=== PATIENT | female | born 1985 | race Caucasian/White ===

== ENCOUNTER 2018-08-17 02:43 | Inpatient (IN) | payer OTHER ==
[2018-08-17] MEDS ORDERED: MISOPROSTOL 200 MCG TAB PR ×2 (03:30→13:00)
[2018-08-17] MEDS ORDERED: METHYLERGONOVINE 0.2 MG INJ IM ×2 (03:30→13:00)
[2018-08-17] MEDS ORDERED: CARBOPROST 250 MCG INJ IM ×2 (03:30→13:00)
[2018-08-17] MEDS ORDERED: IBUPROFEN 600 MG TAB PO (03:30)
[2018-08-17] MEDS ORDERED: OXYTOCIN 30 UNITS/LR 500 ML IV ×2 (03:30→13:00)
[2018-08-17] MEDS ORDERED: BUTORPHANOL 2 MG INJ IV (03:30)
[2018-08-17] MEDS: LACTATED RINGER'S 1,000 ML IV* ×3 (04:00→20:53)
[2018-08-17] MEDS: AMPICILLIN 2 GM/NS (PMX) 100 ML IV (04:01)
[2018-08-17 04:03] LABS: ADD MAN DIFF? NO
[2018-08-17 04:13] LABS: BASOPHILS % 0.4 % (0.0-2.0); EOSINOPHILS # 0.2 10^3/ul (0.0-0.5); EOSINOPHILS % 1.6 % (0.0-7.0); HEMATOCRIT 39.9 % (37.0-47.0); HEMOGLOBIN 13.3 g/dl (12.0-16.0); LYMPHOCYTES # 2.7 10^3/ul (0.8-2.9); LYMPHOCYTES % 24.7 % (15.0-51.0); MEAN CORPUSCULAR HEMOGLOBIN 29.8 pg (29.0-33.0); MEAN CORPUSCULAR HGB CONC 33.3 g/dl (32.0-37.0); MEAN CORPUSCULAR VOLUME 89.5 fl (82.0-101.0); MONOCYTES % 9.1 % (0.0-11.0); NEUTROPHILS % 63.7 % (39.0-77.0); PLATELET COUNT 363 10^3/UL (140-415); RED BLOOD COUNT 4.46 10^6/ul (4.20-5.40); RED CELL DISTRIBUTION WIDTH 13.2 % (11.5-14.5)
[2018-08-17 04:13] LABS: WHITE BLOOD COUNT 10.9 10^3/ul (4.8-10.8)
[2018-08-17 04:27] LABS: INR 0.87; PROTIME 11.9 Sec (11.9-14.9); PT RATIO 0.9
[2018-08-17 04:28] LABS: PARTIAL THROMBOPLASTIN TIME 26.1 Sec (23.0-35.0)
[2018-08-17 04:33] LABS: ALANINE AMINOTRANSFERASE 21 IU/L (13-69); ALBUMIN 3.1 g/dl (3.3-4.9); ALBUMIN/GLOBULIN RATIO 0.88; ALKALINE PHOSPHATASE 305 IU/L (42-121); ANION GAP 9 (5-13); ASPARTATE AMINO TRANSFERASE 18 IU/L (15-46); BILIRUBIN,INDIRECT 0.6 mg/dl (0-1.1); BILIRUBIN,TOTAL 0.6 mg/dl (0.2-1.3); BLOOD UREA NITROGEN 10 mg/dl (7-20); CALCIUM 9.9 mg/dl (8.4-10.2); CARBON DIOXIDE 20 mmol/L (21-31); CHLORIDE 108 mmol/L (97-110); CREATININE 0.59 mg/dl (0.44-1.00); GLUCOSE 103 mg/dl (70-220); SODIUM 137 mmol/L (135-144); TOTAL PROTEIN 6.6 g/dl (6.1-8.1)
[2018-08-17 05:04] LABS: HEPATITIS B SURFACE ANTIGEN NEGATIVE (NEGATIVE)
[2018-08-17 05:31] LABS: ADD UMIC YES; UR ASCORBIC ACID 40 mg/dL (NEGATIVE); UR BACTERIA FEW /HPF (NONE SEEN); UR BILIRUBIN (Dip) NEGATIVE (NEGATIVE); UR BLOOD (Dip) 2+ mg/dL (NEGATIVE); UR CALCIUM OXALATE CRYSTAL MANY /HPF (NONE SEEN); UR CLARITY CLOUDY (CLEAR); UR COLOR YELLOW (YELLOW); UR GLUCOSE (Dip) NEGATIVE (NEGATIVE); UR KETONES (Dip) NEGATIVE (NEGATIVE); UR LEUKOCYTE ESTERASE (Dip) 1+ Leu/ul (NEGATIVE); UR MUCUS FEW /HPF (NONE SEEN); UR NITRITE (Dip) NEGATIVE (NEGATIVE); UR RBC 6 /HPF (0-5); UR SPECIFIC GRAVITY (Dip) 1.026 (1.003-1.030); UR SQUAMOUS EPITHELIAL CELL FEW /HPF (FEW); UR TOTAL PROTEIN (Dip) 1+ mg/dl (NEGATIVE); UR UROBILINOGEN (Dip) 1+ mg/dL (NEGATIVE); UR WBC 27 /HPF (0-5)
[2018-08-17] MEDS ORDERED: FENTAnyl 2MCG/ML-ROPIV 0.2% 100 ML (05:57)
[2018-08-17] MEDS ORDERED: NALOXONE (0.4 MG/ML) INJ IV (06:30)
[2018-08-17] MEDS: LACTATED RINGER'S 1,000 ML IV (06:33)
[2018-08-17] MEDS: FENTAnyl 2MCG/ML-ROPIV 0.2% 100 ML BAG EPI (06:35)
[2018-08-17] MEDS: AMPICILLIN 1 GM/NS (PMX) 50 ML IV (08:04)
[2018-08-17] MEDS: OXYTOCIN 30 UNITS/LR 500 ML IV ×2 (10:25→11:10)
[2018-08-17] MEDS: LIDOCAINE 0.5% (SDV) 50 ML INJ INFIL (10:25)
[2018-08-17] MEDS ORDERED: CEFAZOLIN 2 GM/50 ML (PMX) 50 ML IVPB (10:31)
[2018-08-17] MEDS: CEFAZOLIN 2 GM/50 ML (PMX) 50 ML IVPB (10:45)
[2018-08-17] MEDS ORDERED: ACETAMINOPHEN 325 MG TAB PO (13:00)
[2018-08-17] MEDS: LANOLIN 7 GM TUBE TOP (16:03)
[2018-08-17] MEDS: WITCH HAZEL/GLYCERIN PAD PR (16:04)
[2018-08-17] MEDS: BENZOCAINE 20% 56 ML SPRAY TOP (16:04)
[2018-08-17] MEDS: DIBUCAINE 1% 30 GM OINT PR (16:04)
[2018-08-17] MEDS: HYDROCODONE/APAP (5/325) TAB PO (16:05)
[2018-08-17] MEDS: IBUPROFEN 600 MG TAB PO ×2 (18:36→23:47)
[2018-08-17] MEDS: MINERAL OIL LIGHT 10 ML VIAL TOP (19:00)
[2018-08-17 19:28] LABS: RAPID PLASMA REAGIN NONREACTIVE (NR)
[2018-08-17] MEDS: SENNA/DOCUSATE NA (8.6MG/50MG) TAB PO (21:28)
[2018-08-18] MEDS: IBUPROFEN 600 MG TAB PO ×3 (05:53→17:25)
[2018-08-18 07:59] LABS: ADD MAN DIFF? NO
[2018-08-18 08:03] LABS: WHITE BLOOD COUNT 11.9 10^3/ul (4.8-10.8)
[2018-08-18 08:03] LABS: BASOPHILS % 0.3 % (0.0-2.0); EOSINOPHILS # 0.2 10^3/ul (0.0-0.5); EOSINOPHILS % 1.3 % (0.0-7.0); HEMATOCRIT 32.7 % (37.0-47.0); HEMOGLOBIN 10.9 g/dl (12.0-16.0); LYMPHOCYTES # 2.5 10^3/ul (0.8-2.9); LYMPHOCYTES % 20.9 % (15.0-51.0); MEAN CORPUSCULAR HEMOGLOBIN 30.4 pg (29.0-33.0); MEAN CORPUSCULAR HGB CONC 33.3 g/dl (32.0-37.0); MEAN CORPUSCULAR VOLUME 91.3 fl (82.0-101.0); MEAN PLATELET VOLUME 11.1 fl (7.4-10.4); MONOCYTE # 0.8 10^3/ul (0.3-0.9); MONOCYTES % 6.9 % (0.0-11.0); NEUTROPHIL # 8.3 10^3/ul (1.6-7.5); NEUTROPHILS % 70.2 % (39.0-77.0); PLATELET COUNT 307 10^3/UL (140-415); RED BLOOD COUNT 3.58 10^6/ul (4.20-5.40); RED CELL DISTRIBUTION WIDTH 13.6 % (11.5-14.5)
[2018-08-18] MEDS: SENNA/DOCUSATE NA (8.6MG/50MG) TAB PO ×2 (10:15→21:27)
[2018-08-19] MEDS: IBUPROFEN 600 MG TAB PO ×3 (00:02→11:50)
[2018-08-19] MEDS: SENNA/DOCUSATE NA (8.6MG/50MG) TAB PO (10:20)
[2018-08-19] MEDS: DIPHTH/TET/ACEL PERTUSS (ADULT) 0.5 ML VIAL IM* (10:21)
== END 2018-08-19 15:40 | disposition home or self-care (01) | DRG 768 ==
LOC: OBT 02:43 → L-D 02:43 → OBT 03:15 → L-D 03:15 → PP1 12:48
PROVIDERS: Obstetrics & Gynecology
PROC: 10E0XZZ Delivery of Products of Conception, External Approach (ICD-10-PCS; principal; 2018-08-17)
PROC: 0DQR0ZZ Repair Anal Sphincter, Open Approach (ICD-10-PCS; 2018-08-17)
DX: O77.0 Labor and delivery complicated by meconium in amniotic fluid (principal); O70.20 Third degree perineal laceration during delivery, unspecified; O99.824 Streptococcus B carrier state complicating childbirth; Z37.0 Single live birth; Z3A.39 39 weeks gestation of pregnancy; Z23 Encounter for immunization
CPT/HCPCS: 36415; 62319; 80053; 81001; 84560; 85025; 85610; 85730; 86592; 86850; 86900; 86901; 87340; 90686; 90715; 99464

== ENCOUNTER 2019-07-17 16:57 | Inpatient (IN) | payer OTHER ==
[2019-07-17] MEDS ORDERED: LACTATED RINGER'S 1,000 ML IV (21:16)
[2019-07-17] MEDS ORDERED: OXYTOCIN 30 UNITS/LR 500 ML IV ×2 (21:30)
[2019-07-17] MEDS ORDERED: METHYLERGONOVINE 0.2 MG INJ IM (21:30)
[2019-07-17] MEDS ORDERED: LIDOCAINE 1% (MPF) 30 ML INJ INJ (21:30)
[2019-07-17] MEDS ORDERED: CARBOPROST 250 MCG INJ IM (21:30)
[2019-07-17] MEDS ORDERED: BUTORPHANOL 2 MG INJ IV (21:30)
[2019-07-17] MEDS ORDERED: MISOPROSTOL 200 MCG TAB PR (21:30)
[2019-07-17] MEDS ORDERED: IBUPROFEN 600 MG TAB PO (21:30)
[2019-07-17] MEDS: LACTATED RINGER'S 1,000 ML IV (22:12)
[2019-07-18] MEDS: DEXTROSE 5%-LR 1,000 ML IV ×2 (06:17→17:30)
[2019-07-18] MEDS ORDERED: FENTAnyl 2MCG/ML-ROPIV 0.2% 100 ML (07:42)
[2019-07-18] MEDS: OXYTOCIN 30 UNITS/LR 500 ML IV ×2 (09:41→19:21)
[2019-07-18] MEDS ORDERED: NALOXONE (0.4 MG/ML) INJ IV (15:00)
[2019-07-18] MEDS ORDERED: FENTAnyl 2MCG/ML-ROPIV 0.2% 100 ML BAG EPI (15:00)
[2019-07-18] MEDS ORDERED: KETOROLAC 30 MG INJ IV (15:00)
[2019-07-18] MEDS ORDERED: ONDANSETRON 4 MG INJ IV (15:00)
[2019-07-18] MEDS ORDERED: DIPHENHYDRAMINE 50 MG INJ IV (15:00)
[2019-07-18] MEDS ORDERED: HYDROmorphONE 0.5 MG/0.5 ML SYG IV ×2 (15:00)
[2019-07-18] MEDS: LABETALOL HCL 20MG INJ IV (17:26)
[2019-07-18] MEDS ORDERED: OXYTOCIN 10 UNIT INJ (18:06)
[2019-07-18] MEDS: MINERAL OIL LIGHT 10 ML VIAL TOP (21:50)
[2019-07-18] MEDS ORDERED: DIBUCAINE 1% 30 GM OINT TOP (22:30)
[2019-07-18] MEDS ORDERED: MISOPROSTOL 200 MCG TAB PR (22:30)
[2019-07-18] MEDS ORDERED: OXYTOCIN 30 UNITS/LR 500 ML IV (22:30)
[2019-07-18] MEDS ORDERED: ACETAMINOPHEN 325 MG TAB PO (22:30)
[2019-07-18] MEDS ORDERED: CARBOPROST 250 MCG INJ IM (22:30)
[2019-07-18] MEDS: WITCH HAZEL/GLYCERIN PAD PR (23:44)
[2019-07-18] MEDS: SENNA/DOCUSATE NA (8.6MG/50MG) TAB PO (23:44)
[2019-07-18] MEDS: BENZOCAINE 20% 56 ML SPRAY TOP (23:44)
[2019-07-18] MEDS: IBUPROFEN 600 MG TAB PO (23:44)
[2019-07-19] MEDS: LACTATED RINGER'S 1,000 ML IV* ×3 (02:31→14:21)
[2019-07-19] MEDS: IBUPROFEN 600 MG TAB PO ×3 (05:47→17:20)
[2019-07-19] MEDS: SENNA/DOCUSATE NA (8.6MG/50MG) TAB PO ×2 (09:55→20:56)
[2019-07-19] MEDS: WITCH HAZEL/GLYCERIN PAD PR (22:07)
[2019-07-19] MEDS: BENZOCAINE 20% 56 ML SPRAY TOP (22:08)
[2019-07-19] MEDS: HYDROCODONE/APAP (5/325) TAB PO (22:08)
[2019-07-20] MEDS: IBUPROFEN 600 MG TAB PO ×2 (00:39→08:30)
[2019-07-20] MEDS: SENNA/DOCUSATE NA (8.6MG/50MG) TAB PO (08:29)
[2019-07-20] MEDS: DIPHTH/TET/ACEL PERTUSS (ADULT) 0.5 ML VIAL IM* (09:00)
== END 2019-07-20 14:10 | disposition home or self-care (01) | DRG 807 ==
LOC: OBT 16:57 → L-D 16:59 → PP1 07-18 21:39 → L-D 17:59 → OBT 20:22 → L-D 20:22
PROC: 10E0XZZ Delivery of Products of Conception, External Approach (ICD-10-PCS; principal; 2019-07-18)
PROC: 0KQM0ZZ Repair Perineum Muscle, Open Approach (ICD-10-PCS; 2019-07-18)
DX: O13.4 Gestational [pregnancy-induced] hypertension without significant proteinuria, complicating childbirth (principal); Z37.0 Single live birth; O24.429 Gestational diabetes mellitus in childbirth, unspecified control; O69.81X0 Labor and delivery complicated by cord around neck, without compression, not applicable or unspecified; O70.1 Second degree perineal laceration during delivery; R20.0 Anesthesia of skin; Z3A.38 38 weeks gestation of pregnancy
CPT/HCPCS: 62322; 76815; 76818; 80053; 81001; 82962; 84560; 85025; 85610; 85730; 86592; 86850; 86900; 86901; 87340; 99464